=== PATIENT | male | born 2000 | race Caucasian/White ===

== ENCOUNTER 2024-06-12 01:59 | Emergency (ER) | payer OTHER ==
[~2024-06-12] VITALS: Ht 172.7 cm; Wt 73.0 kg
[2024-06-12 02:16] VITALS: O2SAT 96
[2024-06-12] MEDS: MORPHINE SULFATE 4 MG/ML INJ (FOR IV/IM USE) IV ONE (03:15)
[2024-06-12] MEDS ORDERED: IBUP-2029 MT (04:21)
[2024-06-12 04:53] VITALS: BP 101/60; PULSE 101; RESP 18; TEMP 37.11408; O2SAT 96
[2024-06-12] MEDS: KETOROLAC 30MG/ML VIAL IV ONE (04:53)
== END 2024-06-12 05:10 | disposition home or self-care (01) ==
LOC: ER 02:11
DX: S82.402A Unspecified fracture of shaft of left fibula, initial encounter for closed fracture (principal); S09.90XA Unspecified injury of head, initial encounter; W18.39XA Other fall on same level, initial encounter; Y93.89 Activity, other specified; Y92.89 Other specified places as the place of occurrence of the external cause; Y99.8 Other external cause status
CPT/HCPCS: 99285; 96374; 29515; 70450; 73590; 73610; J1885